=== PATIENT | female | born 1970 | race Two or more races ===

== ENCOUNTER → 2024-08-28 | Outpatient (CLI) | payer BC, SELFPAY ==
[2024-08-28 11:08] LABS: Creatinine MALB Rnd Ur 105 mg/dL (30-125); Microalbumin, Random Urine < 3 mg/L (0-300)
== END | disposition home or self-care (01) ==
LOC: SLDO 09:00
PROVIDERS: Referring Provider Nurse Practitioner Family; Visit Provider Nurse Practitioner Family
DX: Z00.00 Encounter for general adult medical examination without abnormal findings (principal); M08.00 Unspecified juvenile rheumatoid arthritis of unspecified site; R53.83 Other fatigue; I10 Essential (primary) hypertension; E55.9 Vitamin D deficiency, unspecified; Z13.0 Encounter for screening for diseases of the blood and blood-forming organs and certain disorders involving the immune mechanism; Z13.1 Encounter for screening for diabetes mellitus; Z13.21 Encounter for screening for nutritional disorder; Z13.29 Encounter for screening for other suspected endocrine disorder; Z13.89 Encounter for screening for other disorder
CPT/HCPCS: 82043; 82570

== ENCOUNTER 2024-10-11 06:45 | Day surgery (SDC) | payer BC, SELFPAY ==
[2024-10-10 13:28] LABS: HCG Qualitative,Urine Negative
[2024-10-10 14:38] VITALS: BMI 36.7
[2024-10-11] VITALS (10 sets, daily range): BP systolic 136–167; BP diastolic 91–128; PULSE 61–80; RESP 16–27; TEMP 36.5–36.8; O2SAT 92–98; BMI 36.7
[2024-10-11] MEDS: SODIUM CHLORIDE 0.9% 500 ML 500 ML 20 ML IV (07:41)
[2024-10-11] MEDS: MIDAZOLAM INJ 1 MG/ML VIAL 2 ML (ASD USE ONLY) 2 MG IVP (07:47)
[2024-10-11] MEDS: fentaNYL CIT INJ 50 mCg/ML AMP 2ML (ASD USE ONLY) IVP (07:55)
== END 2024-10-11 08:47 | disposition home or self-care (01) ==
PROVIDERS: PCP Nurse Practitioner Family; Referring Provider Surgery; Visit Provider Surgery
PROC: 0DBE8ZX Excision of Large Intestine, Via Natural or Artificial Opening Endoscopic, Diagnostic (ICD-10-PCS; CPT 45380; principal; 2024-10-11 07:30)
DX: Z12.11 Encounter for screening for malignant neoplasm of colon (principal); D12.3 Benign neoplasm of transverse colon; K63.89 Other specified diseases of intestine; D12.8 Benign neoplasm of rectum; K64.1 Second degree hemorrhoids; Z12.12 Encounter for screening for malignant neoplasm of rectum; I10 Essential (primary) hypertension; Z90.49 Acquired absence of other specified parts of digestive tract; Z79.899 Other long term (current) drug therapy; K63.5 Polyp of colon
CPT/HCPCS: 45385; 45380; 81025; A4649; J1200; J2250; J3010; J7999